=== PATIENT | male | born 1965 | race Caucasian/White ===

== ENCOUNTER 2024-12-24 04:50 | Emergency (ER) | payer OTHER ==
[~2024-12-24] VITALS: Ht 180.3 cm; Wt 71.0 kg
[2024-12-24 04:52] VITALS: BP 117/59; PULSE 80; RESP 15; O2SAT 95
== END 2024-12-24 05:51 | disposition left against medical advice (07) ==
LOC: ER 04:51
DX: R53.1 Weakness (principal); Z53.21 Procedure and treatment not carried out due to patient leaving prior to being seen by health care provider